=== PATIENT | male | born 1980 | race Caucasian/White ===

== ENCOUNTER → 2020-09-20 | Outpatient (CLI) | payer OTHER ==
--- NOTE | 2020-09-20 09:15 | US ---
EXAMINATION TYPE: US abdomen complete DATE OF EXAM: 09/20/2020 COMPARISON: NONE CLINICAL HISTORY: R74.8 abn levels of other serum enzymes. Abnormal labs EXAM MEASUREMENTS: Liver Length: 14.4 cm Gallbladder Wall: .2 cm CBD: .3 cm Spleen: 11.2 cm Right Kidney: 9.5 x 4.1 x 5.5 cm Left Kidney: 10.5 x 5.1 x 4.6 cm Pancreas: Tail obscured by overlying bowel gas Liver: Increased attenuation Gallbladder: wnl Evidence for sonographic Mcdowell's sign: No CBD: wnl Spleen: wnl Right Kidney: wnl Left Kidney: wnl Upper IVC: wnl Abd Aorta: wnl The visualized liver is heterogeneously hyperechoic. No intrahepatic ductal dilatation. The intrahep atic portion of the IVC and visualized abdominal aorta are within normal limits. There is no evidenc e of shadowing mobile cholelithiasis. Common bile duct is unremarkable. The visualized portions of the pancreas are homogenous. The spleen is unremarkable. Kidneys are symmetric and free of hydronep hrosis. No renal lesions are seen on images saved. IMPRESSION: Heterogeneous hyperechoic appearance of liver is likely on the basis of diffuse fatty inf iltration. Underlying hepatocellular disease is not excluded.
== END | disposition home or self-care (01) ==
LOC: RADUSWWP 07:41
PROVIDERS: ATTEND Family Medicine
DX: K76.9 Liver disease, unspecified (principal); R93.2 Abnormal findings on diagnostic imaging of liver and biliary tract
CPT/HCPCS: 76700

== ENCOUNTER 2020-12-15 07:00 | Day surgery (SDC) | payer OTHER ==
[2020-12-08 08:26] VITALS: BMI 29.2
--- NOTE | 2020-12-09 09:32 | P.GSHP ---
History of Present Illness H&P Date: 12/09/20 CHIEF COMPLAINT: GERD HISTORY OF PRESENT ILLNESS: The patient is a 40-year-old male who presents reports gastroesophageal reflux disease. Upper endoscopy was offered for further evaluation and management. PAST MEDICAL HISTORY: Please see list. PAST SURGICAL HISTORY: Please see list. MEDICATIONS: Please see list. ALLERGIES: Please see list. SOCIAL HISTORY: No illicit drug use FAMILY HISTORY: No reports of Crohn disease or ulcerative colitis. REVIEW OF ORGAN SYSTEMS: CONSTITUTIONAL: No reports of fevers or chills. GI: Denies any blood in stools or constipation. PHYSICAL EXAM: VITAL SIGNS: Stable GENERAL: Well-developed and pleasant in no acute distress. HEENT: No scleral icterus. Extraocular movements grossly intact. Moist buccal mucosa. NECK: Supple without lymphadenopathy. CHEST: Unlabored respirations. Equal bilateral excursions. CARDIOVASCULAR: Regular rate and rhythm. Distal 2+ pulses. ABDOMEN: Soft, nondistended. MUSCULOSKELETAL: No clubbing, cyanosis, or edema. ASSESSMENT: 1. Gastroesophageal reflux disease PLAN: 1. Recommend proceeding with an upper endoscopy Past Medical History Additional Past Medical History / Comment(s): RT SIDED ABD. PAIN History of Any Multi-Drug Resistant Organisms: None Reported Past Surgical History: Hernia Repair Past Anesthesia/Blood Transfusion Reactions: No Reported Reaction Smoking Status: Current every day smoker - Past Family History Mother Family Medical History: Cancer Additional Family Medical History / Comment(s): LUNG Medications and Allergies Home Medications Medication Instructions Recorded Confirmed Type buPROPion HCL [Wellbutrin XL] 300 mg PO DAILY 12/08/20 12/08/20 History Allergies Allergy/AdvReac Type Severity Reaction Status Date / Time chocolate flavor Allergy Rash/Hives Verified 12/08/20 08:22 egg Allergy Rash/Hives Verified 12/08/20 08:22 orange juice [[place]] Allergy Rash/Hives Verified 12/08/20 08:22
--- NOTE | 2020-12-09 10:44 | P.HPADDEND ---
H&P Addendum H&P Addendum Date: 12/09/20 Patient canceled case due to lack of sider mechanic.
[~2020-12-15 07:00] MED LIST: LACTATED RINGERS 1,000 ML IV SCH; LIDOCAINE 1% (10MG/ML) FOR IV START INTRADERMA PRN
--- NOTE | 2020-12-15 08:55 | P.GSHP ---
History of Present Illness H&P Date: 12/15/20 CHIEF COMPLAINT: GERD HISTORY OF PRESENT ILLNESS: The patient is a 40-year-old male who presents reports gastroesophageal reflux disease. Upper endoscopy was offered for further evaluation and management. PAST MEDICAL HISTORY: Please see list. PAST SURGICAL HISTORY: Please see list. MEDICATIONS: Please see list. ALLERGIES: Please see list. SOCIAL HISTORY: No illicit drug use FAMILY HISTORY: No reports of Crohn disease or ulcerative colitis. REVIEW OF ORGAN SYSTEMS: CONSTITUTIONAL: No reports of fevers or chills. GI: Denies any blood in stools or constipation. PHYSICAL EXAM: VITAL SIGNS: Stable GENERAL: Well-developed and pleasant in no acute distress. HEENT: No scleral icterus. Extraocular movements grossly intact. Moist buccal mucosa. NECK: Supple without lymphadenopathy. CHEST: Unlabored respirations. Equal bilateral excursions. CARDIOVASCULAR: Regular rate and rhythm. Distal 2+ pulses. ABDOMEN: Soft, nondistended. MUSCULOSKELETAL: No clubbing, cyanosis, or edema. ASSESSMENT: 1. Gastroesophageal reflux disease PLAN: 1. Recommend proceeding with an upper endoscopy Past Medical History Additional Past Medical History / Comment(s): RT SIDED ABD. PAIN History of Any Multi-Drug Resistant Organisms: None Reported Past Surgical History: Hernia Repair Past Anesthesia/Blood Transfusion Reactions: No Reported Reaction Smoking Status: Current every day smoker - Past Family History Mother Family Medical History: Cancer Additional Family Medical History / Comment(s): LUNG Medications and Allergies Home Medications Medication Instructions Recorded Confirmed Type buPROPion HCL [Wellbutrin XL] 300 mg PO DAILY 12/08/20 12/10/20 History Allergies Allergy/AdvReac Type Severity Reaction Status Date / Time chocolate flavor Allergy Rash/Hives Verified 12/08/20 08:22 egg Allergy Rash/Hives Verified 12/08/20 08:22 orange juice [[place]] Allergy Rash/Hives Verified 12/08/20 08:22
[2020-12-15] MEDS ORDERED: PROPOFOL 10 MG/ML 20 ML VIAL IV ONE (09:56)
[2020-12-15] MEDS ORDERED: LIDOCAINE 1% INJ 10MG/ML (20 ML MDV) ONE (09:56)
--- NOTE | 2020-12-15 10:16 | P.PCN ---
Date of Procedure: 12/15/20 Description of Procedure: PREOPERATIVE DIAGNOSIS: Gastroesophageal reflux disease. Hematemesis Gastrointestinal bleeding, upper Epigastric abdominal pain POSTOPERATIVE DIAGNOSIS: Erosive esophagitis Gastritis. Gastroesophageal reflux disease. OPERATION: Esophagogastroduodenoscopy with biopsies along antrum. SURGEON: Niurka Ojeda MD ANESTHESIA: MAC. INDICATIONS: The patient is a 40-year-old male who presents with a history of reflux disease, hematemesis and upper GI bleed with epigastric abdominal pain. Benefits and risks of the procedure were described. Informed consent was obtained. DESCRIPTION: The patient was brought into the endoscopy suite and laid in the left lateral decubitus position. An Olympus gastroscope was passed along the posterior oropharynx down to the distal esophagus where the squamocolumnar junction was encountered at 37 cm from the incisors. The stomach was entered and no bile reflux was found. Additional findings are listed below. Biopsies with cold forceps were obtained of the antrum. The first through third portion of the duodenum was examined and unremarkable. Retroflexion of the scope confirmed Hill grade 2 lower esophageal valve. The squamocolumnar junction demonstrated LA grade C erosive esophagitis. The stomach was desufflated. The patient tolerated the procedure well. FINDINGS: Squamocolumnar junction 37 cm from the incisors. Diaphragmatic hiatus at 37 cm. Hill grade 2 lower esophageal valve. LA grade B erosive esophagitis. No active duodenitis. Chronic gastritis RECOMMENDATIONS: Upper endoscopy as needed. Plan - Discharge Summary Discharge Rx Participant: No New Discharge Prescriptions: New Omeprazole [PriLOSEC] 40 mg PO DAILY #14 cap Continue buPROPion HCL [Wellbutrin XL] 300 mg PO DAILY Discharge Medication List buPROPion HCL [Wellbutrin XL] 300 mg PO DAILY 12/08/20 [History] Omeprazole [PriLOSEC] 40 mg PO DAILY #14 cap 12/15/20 [Rx] Follow up Appointment(s)/Referral(s): Niurka Ojeda MD [STAFF PHYSICIAN] - 01/04/21 Patient Instructions/Handouts: *[facility] - (Anesthesia) Endoscopy Discharge Instructions, Upper Endoscopy (DC), Gastroesophageal Reflux Disease (ED) Discharge Disposition: HOME SELF-CARE
[2020-12-15 10:48] VITALS: RESP 16
[2020-12-15] MEDS ORDERED: hydrALAZINE HCL 20 MG/ML 1 ML VIAL IVP ONE (11:07)
[2020-12-15] MEDS ORDERED: METOPROLOL TARTRATE 5 MG/5 ML VIAL IVP ONE (11:34)
[2020-12-15 12:20] VITALS: PULSE 74
[2020-12-15 12:23] VITALS: BP 182/110
== END 2020-12-15 12:38 | disposition home or self-care (01) ==
LOC: ORWHC2ENDO 07:00
PROVIDERS: ATTEND Surgery Plastic and Reconstructive Surgery
DX: K31.9 Disease of stomach and duodenum, unspecified (principal); K29.70 Gastritis, unspecified, without bleeding; K21.00 Gastro-esophageal reflux disease with esophagitis, without bleeding; K22.11 Ulcer of esophagus with bleeding; F17.210 Nicotine dependence, cigarettes, uncomplicated; Z98.890 Other specified postprocedural states; Z79.899 Other long term (current) drug therapy; Z80.1 Family history of malignant neoplasm of trachea, bronchus and lung; Z91.012 Allergy to eggs; Z91.02 Food additives allergy status; Z91.018 Allergy to other foods
CPT/HCPCS: 43239; 88305; J0360; J2001; J2704

== ENCOUNTER → 2021-12-13 | Outpatient (CLI) | payer OTHER ==
--- NOTE | 2021-12-13 08:14 | US ---
EXAMINATION TYPE: US gallbladder DATE OF EXAM: 12/13/2021 COMPARISON: Ultrasound abdomen September 20, 2020. CLINICAL HISTORY: K81.1 Chronic cholecystitis. RUQ pain x 2 years, N/V on and off EXAM MEASUREMENTS: Liver Length: 16.2 cm Gallbladder Wall: 0.2 cm CBD: 0.4 cm Right Kidney: 9.7 x 5.1 x 5.0 cm Pancreas: not seen due to bowel gas Liver: difficult to penetrate Gallbladder: sludge like appearance Evidence for sonographic Mcdowell's sign: no CBD: wnl Right Kidney: wnl Suboptimal evaluation of pancreas on images saved. Visualized liver is markedly heterogeneously hyper echoic. This eliminates evaluation for focal masses. No biliary dilatation is seen. No right-sided hy dronephrosis. Gallbladder not well visualized without shadowing mobile gallstones. Cannot exclude gal lbladder sludge dependently. IMPRESSION: Persistent heterogeneous hyperechoic appearance of liver consistent with diffuse fatty in filtration and/or underlying hepatocellular disease. Correlate clinically. No acute findings clearly evident.
== END | disposition home or self-care (01) ==
LOC: RADUSWWP 07:47
PROVIDERS: ATTEND Surgery Plastic and Reconstructive Surgery
DX: K81.1 Chronic cholecystitis (principal)
CPT/HCPCS: 76705

== ENCOUNTER → 2021-12-20 | Outpatient (CLI) | payer OTHER ==
--- NOTE | 2021-12-20 11:47 | NM ---
EXAMINATION TYPE: NM hepatobiliary w EF DATE OF EXAM: 12/20/2021 COMPARISON: Ultrasound gallbladder 12/13/2021 HISTORY: Chronic cholecystitis, K 81.1 TECHNIQUE: After the intravenous administration of 4.9 mCi Tc 99m Mebrofenin hepatobiliary scintigrap hy is performed. Immediate images post injection. FINDINGS: There is satisfactory initial accumulation of tracer by the liver. The gallbladder is visualized wit hin 2 minutes. The small bowel activity is noted within 4 minutes. At one hour 8 ounces of oral ens ure plus is given to mimic CCK and gallbladder ejection fraction is calculated at 69 %, in the normal range. Therefore there is no scintigraphic evidence of cystic or common bile duct obstruction to naik ggest acute cholecystitis or gallbladder dyskinesia. IMPRESSION: Exam is within normal limits.
== END | disposition home or self-care (01) ==
LOC: RADNMMAIN 06:57
PROVIDERS: ATTEND Surgery Plastic and Reconstructive Surgery
DX: K81.1 Chronic cholecystitis (principal)
CPT/HCPCS: 78226; A9537

== ENCOUNTER → 2022-02-23 | Outpatient (CLI) | payer OTHER ==
[2022-02-23 14:21] LABS: HCT 46.9 % (39.6-50.0); HGB 15.6 g/dL (13.0-17.0); MCH 31.8 pg (27.0-32.0); MCHC 33.3 g/dL (32.0-37.0); MCV 95.5 fL (80.0-97.0); Mean Platelet Volume 10.4 fL (9.5-12.2); NRBC Per 100 WBC 0 /100 WBCS (0.0-0.0); Platelet Count 389 X 10*3/uL (140-440); RBC 4.91 X 10*6/uL (4.40-5.60); RDW 13.5 % (11.5-14.5); WBC 9.69 X 10*3/uL (4.50-10.00)
[2022-02-23 14:37] LABS: African American GFR (CKD) 118.8 (60.0-200.0); Albumin 4.4 g/dL (3.8-4.9); Albumin/Globulin Ratio 1.58 (1.60-3.17); Anion Gap 12.4 mmol/L (10.00-18.00); BUN/Creat Ratio 12.53 Ratio (12.00-20.00); Blood Urea Nitrogen 11.7 mg/dL (9.0-27.0); Calcium 9.6 mg/dL (8.7-10.3); Carbon Dioxide 22.4 mmol/L (20.0-27.5); Globulin 2.8 g/dL (1.6-3.3); Non-African American GFR(CKD) 102.5 (60.0-200.0); Potassium 4.1 mmol/L (3.5-5.5); Total Bilirubin 0.3 mg/dL (0.30-1.20); Total Protein 7.2 g/dL (6.2-8.2)
[2022-02-23 15:07] LABS: Hepatitis A Antibody IgM Nonreactive (Nonreactive); Hepatitis B Core IgM Nonreactive (Nonreactive); Hepatitis B Surface Antigen Nonreactive (Nonreactive); Hepatitis C IgG Antibody Nonreactive (Nonreactive)
== END | disposition home or self-care (01) ==
LOC: LABWHC1 08:59
PROVIDERS: ATTEND Surgery Plastic and Reconstructive Surgery
DX: I11.9 Hypertensive heart disease without heart failure (principal); R74.8 Abnormal levels of other serum enzymes
CPT/HCPCS: 36415; 80053; 80074; 85027; 93005

== ENCOUNTER 2022-03-03 07:34 | Day surgery (SDC) | payer OTHER ==
--- NOTE | 2022-03-03 06:54 | P.GSHP ---
History of Present Illness H&P Date: 03/03/22 CHIEF COMPLAINT: Cholecystitis HISTORY OF PRESENT ILLNESS: The patient is a 41-year-old male who presents with history of epigastric including right upper quadrant abdominal pain. He underwent diagnostic studies for his gallbladder. Separately his clinical picture was consistent with cholecystitis. Now he presents for surgical intervention. PAST MEDICAL HISTORY: Please see list PAST SURGICAL HISTORY: Please see list MEDICATIONS: Please see list ALLERGIES: Please see list SOCIAL HISTORY: Please see list FAMILY HISTORY: Please see list REVIEW OF ORGAN SYSTEMS: CONSTITUTIONAL: No reports of fevers or chills. HEENT: Denies any trouble with vision, hearing or nosebleeds. No difficulty swallowing. LYMPHATIC: The patient denies any lumps and bumps around the neck. ENDOCRINE: Denies any thyroid disorders. Denies any blood sugar glucose intolerance. RESPIRATORY: Denies pneumonia. Denies any troubles with breathing or dyspnea on exertion. CARDIOVASCULAR: Has hypertension GASTROINTESTINAL: Has heart burn, GENITOURINARY: Denies any blood in urine or increased urinary frequency. MUSCULOSKELETAL: Has back pain, stiffness, joint arthritis. NEUROLOGIC: Denies any numbness or tingling along the distal extremities. No seizure disorders or headaches. PSYCHIATRIC: Denies suidical ideation. HEMATOLOGIC: Denies any abnormal bleeding or bruising. BREASTS: Denies any breast lumps, pain or nipple discharge. PHYSICAL EXAM: VITAL SIGNS: Afebrile vital signs stable GENERAL: Well-developed pleasant in no acute distress. HEENT: No scleral icterus. Extraocular movements grossly intact. Moist buccal mucosa. NECK: Supple without lymphadenopathy. CHEST: Unlabored respirations. Equal bilateral excursions. CARDIOVASCULAR: Regular rate regular rhythm rhythm. Distal 2+ pulses. ABDOMEN: Soft, nondistended. Tender along the epigastrium and right upper quadrant. MUSCULOSKELETAL: No clubbing, cyanosis, or edema. NEURO: Cranial nerves II to XII within normal limits. No focal or lateralizing signs. PSYCH: Alert and oriented to person, place and time. SKIN: Well-perfused good skin turgor. ASSESSMENT: 1. Epigastric and right upper quadrant abdominal pain 2. Chronic cholecystitis 3. Symptomatic gallstones. PLAN: 1. Will need a robotic cholecystectomy possible open. Benefits and risks were described. 2. Heparin for DVT prophylaxis 5000 units. 3. Antibiotic prophylaxis. Past Medical History Additional Past Medical History / Comment(s): RT SIDED ABD. PAIN History of Any Multi-Drug Resistant Organisms: None Reported Past Surgical History: Hernia Repair Past Anesthesia/Blood Transfusion Reactions: No Reported Reaction Smoking Status: Current every day smoker - Past Family History Mother Family Medical History: Cancer Additional Family Medical History / Comment(s): LUNG Medications and Allergies Home Medications Medication Instructions Recorded Confirmed Type buPROPion HCL [Wellbutrin XL] 300 mg PO DAILY 12/08/20 12/15/20 History Omeprazole [PriLOSEC] 40 mg PO DAILY #14 cap 12/15/20 Rx Allergies Allergy/AdvReac Type Severity Reaction Status Date / Time chocolate flavor Allergy Rash/Hives Verified 12/08/20 08:22 egg Allergy Rash/Hives Verified 12/08/20 08:22 orange juice [[place]] Allergy Rash/Hives Verified 12/08/20 08:22
--- NOTE | 2022-03-03 06:58 | P.HPADDEND ---
H&P Addendum H&P Addendum Date: 03/03/22 Patient has history of gastric ulcers. Intraop EGD advised.
[~2022-03-03 07:34] MED LIST changes: +ACETAMINOPHEN TAB 500 MG TAB PO STA; +DEXAMETHASONE SOD PHOSPHATE 4 MG/ML 1 ML VIAL IV ONE; +GABAPENTIN 300 MG CAP PO STA; +HEPARIN SODIUM,PORCINE/PF 5,000 UNIT/0.5 ML SYRINGE SQ PRN; +HYDROmorphone 0.5 MG/0.5 ML SYRINGE IVP PRN; +INDOCYANINE GREEN 25 MG VIAL IV STA; -LIDOCAINE 1% (10MG/ML) FOR IV START INTRADERMA PRN; +MIDAZOLAM 2 MG/2 ML VIAL IV PRN; +ONDANSETRON 4 MG/2 ML VIAL IVP ONE; +SCOPOLAMINE 1 MG/72 HR PATCH TRANSDERM ONE
[2022-03-03] MEDS ORDERED: MELOXICAM 7.5 MG TAB PO SCH (09:00)
[2022-03-03 09:14] LABS: ALT 67 U/L (4-49); AST 74 U/L (17-59); African American GFR (CKD) >90 (>60 ml/min/1.73 sqM); Albumin 3.8 g/dL (3.5-5.0); Alkaline Phosphatase 108 U/L (38-126); Anion Gap 8 mmol/L; Blood Urea Nitrogen 13 mg/dL (9-20); Calcium 9.2 mg/dL (8.4-10.2); Carbon Dioxide 17 mmol/L (22-30); Chloride 110 mmol/L (98-107); Glucose 74 mg/dL (74-99); Non-African American GFR(CKD) >90 (>60 ml/min/1.73 sqM); Potassium 4.7 mmol/L (3.5-5.1); Sodium 135 mmol/L (137-145); Total Bilirubin 0.7 mg/dL (0.2-1.3); Total Protein 6.3 g/dL (6.3-8.2)
[2022-03-03] MEDS ORDERED: fentaNYL (PF) 50 MCG/ML 2 ML AMP ONE (09:16)
[2022-03-03] MEDS ORDERED: METOPROLOL TARTRATE 5 MG/5 ML VIAL IVP ONE (09:16)
[2022-03-03] MEDS ORDERED: ROCURONIUM 10 MG/ML (5 ML VIAL) IV ONE (09:16)
[2022-03-03] MEDS ORDERED: LIDOCAINE 2% INJ 20 MG/ML (2 ML VIAL) ONE (09:16)
[2022-03-03] MEDS ORDERED: NEOSTIGMINE 1 MG/ML 10 ML VIAL ONE (09:16)
[2022-03-03] MEDS ORDERED: HYDROmorphone (PF) 1 MG/ML ONE (09:16)
[2022-03-03] MEDS ORDERED: SUCCINYLCHOLINE CHLORIDE 100 MG/5 ML SYR IV ONE (09:16)
[2022-03-03] MEDS ORDERED: GLYCOPYRROLATE 0.2 MG/ML 2 ML VIAL ONE (09:16)
[2022-03-03] MEDS ORDERED: MIDAZOLAM 2 MG/2 ML VIAL ONE (09:16)
[2022-03-03] MEDS ORDERED: PROPOFOL 10 MG/ML 20 ML VIAL IV ONE (09:16)
[2022-03-03] MEDS ORDERED: BUPIVACAINE (PF) 0.25% 30 ML VIAL SQ ONE (09:34)
[2022-03-03 10:36] VITALS: TEMP 98
--- NOTE | 2022-03-03 10:50 | P.OP ---
Date of Procedure: 03/03/22 Description of Procedure: SURGEON: NIURKA OJEDA MD PREOPERATIVE DIAGNOSES: 1. Chronic cholecystitis 2. Right upper quadrant abdominal pain 3. Epigastric abdominal pain 4. History of gastric ulcers 5. Depressive disorder 6. Hypertensive heart disease 7. Tobacco abuse disorder 8. Pre-existing urinary tract infection POSTOPERATIVE DIAGNOSES: 1. Chronic cholecystitis 2. Right upper quadrant abdominal pain 3. Epigastric abdominal pain 4. History of gastric ulcers 5. Depressive disorder 6. Peritoneal adhesions, right upper quadrant 7. Obesity due to excess calories, BMI 30.5 8. Hypertensive heart disease 9. Tobacco abuse disorder 10. Pre-existing urinary tract infection 11. Peritoneal adhesions, right upper quadrant 12. Acute gastritis with recent bleeding 13. Acute on chronic duodenal ulcers 14. Fatty liver disease with hepatomegaly OPERATION: 1. Robotic-assisted da Woodrow Xi laparoscopic cholecystectomy, multiport with FIREFLY 2. Robotic-assisted da Woodrow Xi laparoscopic lysis of adhesions 3. Esophagogastroduodenoscopy with biopsies along the antrum and duodenum (See separate procedure note) ESTIMATED BLOOD LOSS: 5 mL. SPECIMENS REMOVED: Gallbladder, antrum and duodenum COMPLICATIONS: None. OPERATIVE FINDINGS: 1. Moderate scarring over gallbladder with peritoneal adhesions, pericholecystic with features of chronic cholecystitis 2. Hepatomegaly with fatty liver disease 3. Acute on chronic duodenal ulcers involving the first two third portion of the duodenum 4. Acute gastritis involving the antrum with recent bleeding INDICATIONS: The patient is a 41-year-old male who presents with chronic cholecystitis. Robotic assisted laparoscopic approach was described. Benefits and risks of the procedure including but not limited to bleeding, infection, injury to the biliary tree was described. Informed consent was obtained. DESCRIPTION OF PROCEDURE: Patient was brought to the operating room, placed in supine position. After general induction, the abdomen had been prepped and draped in standard sterile fashion. The robotic da Woodrow XI system was primed. After a timeout protocol was performed, the patient had been prepped and draped in standard sterile fashion. The patient was injected with indocyanine green. A 5 mm 0 degrees laparoscopic trocar entry was performed along the left upper quadrant. The abdomen insufflated to 15 mmHg pressure which was tolerated well. Diagnostic laparoscopy demonstrated no injury to bowel viscera or mesentery. The liver surface had presence of hepatomegaly with fatty liver disease. Next, two 8 mm robotic ports were placed along the right upper abdomen. The camera 8- mm port was maintained along the epigastrium. Another 8 mm port was placed along the left upper abdominal wall after exchanging the 5 mm port. Please note that the ports were placed at least 10 to 15 cm away from the target anatomy of the gallbladder. The robot was docked along the left lateral abdomen. The patient was repositioned in reverse Trendelenburg position. Using a grasper for arm 3, a grasper for arm 4, including hook cautery for arm 1, the robotic system was docked and primed as described. Instruments were interchanged by the surgical assistant certified including hook cautery, Bovie cautery and clip appliers. I had sat at the console. The gallbladder was scarred with peritoneal adhesions. Lysis of adhesions was performed to free the gallbladder from the surrounding tissues. Next attention was brought to the infundibulum and cystic structures. The infundibulum and cystic duct were dissected free from surrounding tissues. The cystic duct was isolated. FIREFLY was used to identify the cystic artery and cystic structures. A critical view of safety was obtained. Large PLASTIC clips were used throughout the entire case. Using a clip engineer assistant, 2 clips were placed at the junction of the infundibulum and cystic duct. The cystic duct was divided between clips. Next, the cystic artery was similarly clipped and cauterized. Electro-Bovie cautery was used to remove the gallbladder from the hepatic fossa. Hemostasis was checked and found to be adequate. The robot was undocked. I re-scrubbed into the case. Using a 10 mm Endo Catch bag via the left upper quadrant incision, the specimen was removed from the abdominal cavity. All pneumoperitoneum instruments were evacuated from the abdominal cavity. The incisions were reapproximated using 4-0 Monocryl in an interrupted subcuticular fashion. Fascial defects were less than 8 mm in size. Please note along the trocar sites, local anesthetic was placed as a field block prior to insertion of all instruments. Liquid glue was applied to the skin was placed by the surgical assistant certified. I went to the head of the bed to perform intraoperative esophagogastrojejunoscopy. Please see separate operative report. At the end of the procedure needle, sponge, and instrument count had been verified correct by the rn medical surgical. The patient was transferred to postanesthesia care unit in stable condition. Intraoperative films were shared with the patient's family. Plan - Discharge Summary New Discharge Prescriptions: New Sucralfate [Carafate] 1 gm PO BID #60 tablet Omeprazole [PriLOSEC] 40 mg PO DAILY #90 cap Continue buPROPion HCL [Wellbutrin XL] 300 mg PO DAILY hydrALAZINE HCL [Apresoline] 1 tab PO BID traZODone HCL 1 tab PO HS cloNIDine HCL [Catapres] 1 tab PO DAILY QUEtiapine [SEROquel] 1 tab PO HS Discontinued Omeprazole [PriLOSEC] 40 mg PO DAILY #14 cap Discharge Medication List buPROPion HCL [Wellbutrin XL] 300 mg PO DAILY 12/08/20 [History] Omeprazole [PriLOSEC] 40 mg PO DAILY #90 cap 03/03/22 [Rx] QUEtiapine [SEROquel] 1 tab PO HS 03/03/22 [History] Sucralfate [Carafate] 1 gm PO BID #60 tablet 03/03/22 [Rx] cloNIDine HCL [Catapres] 1 tab PO DAILY 03/03/22 [History] hydrALAZINE HCL [Apresoline] 1 tab PO BID 03/03/22 [History] traZODone HCL 1 tab PO HS 03/03/22 [History] Follow up Appointment(s)/Referral(s): Niurka Ojeda MD [STAFF PHYSICIAN] - 03/07/22 (Telehealth) Patient Instructions/Handouts: *[facility] - Laparoscopic Cholecystectomy Discharge Instructions, *[facility] - Managing Your Pain After Surgery Without Opioids, Peptic Ulcer (DC), Low Fat Diet (ED), Non-Alcoholic Fatty Liver Disease (DC) Activity/Diet/Wound Care/Special Instructions: Recommend low-fat diet for the next 2 days. No lifting over 10 pounds in 2 weeks until March 17. May shower. No bath tub soaks for two weeks until March 17 Diet as tolerated. Use Tylenol, simethicone scheduled for the next 24-48 hours for best pain relief. Use ice along incisions for today to prevent swelling. Discharge Disposition: HOME SELF-CARE
--- NOTE | 2022-03-03 10:54 | P.PCN ---
Date of Procedure: 03/03/22 Description of Procedure: PREOPERATIVE DIAGNOSIS: History of gastric ulcers Epigastric abdominal pain POSTOPERATIVE DIAGNOSIS: Acute on chronic duodenal ulcer Gastritis with recent bleeding OPERATION: Esophagogastroduodenoscopy with biopsies along antrum and duodenal SURGEON: Niurka Ojeda MD ANESTHESIA: GETA INDICATIONS: The patient is a 41-year-old male who presents with history of gastric ulcers and persistent abdominal pain for the epigastrium. Benefits and risks of the procedure were described. Informed consent was obtained. DESCRIPTION: After completion of robotic cholecystectomy, went to the head of the bed. An Olympus gastroscope was passed along the posterior oropharynx down to the distal esophagus where the squamocolumnar junction was encountered at 38 cm from the incisors. The stomach was entered with gastritis or recent bleeding. Additional findings are listed below. Biopsies with cold forceps were obtained of the antrum. The first through third portion of the duodenum was examined. Retroflexion of the scope confirmed Hill grade 3 lower esophageal valve. The squamocolumnar junction demonstrated LA grade C erosive esophagitis. The stomach was desufflated. The patient tolerated the procedure well. FINDINGS: Squamocolumnar junction 38 cm from the incisors. Diaphragmatic hiatus at 38 cm. Hill grade 3 lower esophageal valve. LA grade C erosive esophagitis. Active duodenitis with ulcers to the third portion of the duodenum Chronic gastritis with recent bleed RECOMMENDATIONS: 1. Omeprazole 40 mg daily for 4 weeks 2. Carafate 1 g twice a day for 4 weeks 3. Repeat upper endoscopy in 4-6 weeks Plan - Discharge Summary New Discharge Prescriptions: New Sucralfate [Carafate] 1 gm PO BID #60 tablet Omeprazole [PriLOSEC] 40 mg PO DAILY #90 cap Continue buPROPion HCL [Wellbutrin XL] 300 mg PO DAILY hydrALAZINE HCL [Apresoline] 1 tab PO BID traZODone HCL 1 tab PO HS cloNIDine HCL [Catapres] 1 tab PO DAILY QUEtiapine [SEROquel] 1 tab PO HS Discontinued Omeprazole [PriLOSEC] 40 mg PO DAILY #14 cap Discharge Medication List buPROPion HCL [Wellbutrin XL] 300 mg PO DAILY 12/08/20 [History] Omeprazole [PriLOSEC] 40 mg PO DAILY #90 cap 03/03/22 [Rx] QUEtiapine [SEROquel] 1 tab PO HS 03/03/22 [History] Sucralfate [Carafate] 1 gm PO BID #60 tablet 03/03/22 [Rx] cloNIDine HCL [Catapres] 1 tab PO DAILY 03/03/22 [History] hydrALAZINE HCL [Apresoline] 1 tab PO BID 03/03/22 [History] traZODone HCL 1 tab PO HS 03/03/22 [History] Follow up Appointment(s)/Referral(s): Niurka Ojeda MD [STAFF PHYSICIAN] - 03/07/22 (Telehealth) Patient Instructions/Handouts: *[facility] - Laparoscopic Cholecystectomy Discharge Instructions, *[facility] - Managing Your Pain After Surgery Without Opioids, Peptic Ulcer (DC), Low Fat Diet (ED), Non-Alcoholic Fatty Liver Disease (DC) Activity/Diet/Wound Care/Special Instructions: Recommend low-fat diet for the next 2 days. No lifting over 10 pounds in 2 weeks until March 17. May shower. No bath tub soaks for two weeks until March 17 Diet as tolerated. Use Tylenol, simethicone scheduled for the next 24-48 hours for best pain relief. Use ice along incisions for today to prevent swelling. Discharge Disposition: HOME SELF-CARE
[2022-03-03 11:32] VITALS: RESP 18
[2022-03-03 12:07] VITALS: BP 133/81; PULSE 97
== END 2022-03-03 12:35 | disposition home or self-care (01) ==
LOC: OR 07:34
PROVIDERS: ATTEND Surgery Plastic and Reconstructive Surgery
DX: K81.1 Chronic cholecystitis (principal); K66.0 Peritoneal adhesions (postprocedural) (postinfection); K29.50 Unspecified chronic gastritis without bleeding; K26.9 Duodenal ulcer, unspecified as acute or chronic, without hemorrhage or perforation; I10 Essential (primary) hypertension; F32.A Depression, unspecified; I11.9 Hypertensive heart disease without heart failure; Z87.11 Personal history of peptic ulcer disease; N39.0 Urinary tract infection, site not specified; E66.09 Other obesity due to excess calories; Z68.30 Body mass index [BMI] 30.0-30.9, adult; K76.0 Fatty (change of) liver, not elsewhere classified; F17.200 Nicotine dependence, unspecified, uncomplicated; Z80.1 Family history of malignant neoplasm of trachea, bronchus and lung; Z79.899 Other long term (current) drug therapy; Z91.012 Allergy to eggs; Z91.018 Allergy to other foods
CPT/HCPCS: 80053; 47563; 43239; J2250; J1100; J2710; J0690; J2405; J3010; J1170; J0330; J2704; J1644; J2001; 88304; 88305; 88342